=== PATIENT | female | born 1965 | race Caucasian/White ===

== ENCOUNTER 2024-11-19 07:51 | Day surgery (SDC) | payer OTHER, SELFPAY ==
--- OUTSIDE RECORDS SUMMARY | 2024-10-13 23:59 | XMS_ITS | Continuity of Care Document ---
Author Organization [facility] Address [address] [place] [address]- Care Team Providers Care Program Technician Name Role Phone Eric Moncada MD Primary Care Physician [id number] Date(s): 09/13/24 - 10/13/[address] [address]- Encounter Type: Triage Allergies, Adverse Reactions, Alerts Substance Criticality Severity Reaction Reaction Severity Status amoxicillin Active Prozac Active Effexor Active Bactrim Rash Active Geodon Active OLANZapine Active Immunizations Given and Recorded Vaccine Date Status Refusal Reason tetanus-diphtheria toxoids (Td) 1 01/30/22 Given 1Result Comment: [facility]: [id number] Medications clonazePAM 2 mg oral tablet 1 tablet = 2 mg, By Mouth, Daily at bedtime, # 90 tablet, 0 Refills, Soft Stop, 09/09/24 4:16:00 PM EDT, [id number], 148, cm, 09/09/24 14:04:00 EDT, Height Start Date: 09/09/24 Stop Date: 12/08/24 Status: Ordered Quantity: 90.0 Unit: tablet Repeat number: 1 Iron-150 1 tablet, By Mouth, Daily, 0 Refills, Maintenance, 02/03/16 8:52:29 AM EST Start Date: 02/03/16 Status: Ordered Repeat number: 1 Probiotic Formula oral capsule 1 capsule, By Mouth, Daily, 0 Refills, Maintenance, 02/03/16 8:53:03 AM EST Start Date: 02/03/16 Status: Ordered Repeat number: 1 Problem List Condition Confirmation Course Effective Dates Status Health St atus Informant Anxiety Confirmed Active Hx of traumatic brain injury Confirmed Active Hyperlipidemia, unspecified Confirmed Active 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 Osteoporosis Confirmed Active PTSD (post-traumatic stress disorder) Confirmed Active Social History Social History Type Response Smoking Status Never (less than 100 in lifetime) entered on: 06/03/24 Sex Sex Representation Female (finding) Patient Care team information Care Team Personnel Name: Eric Moncada MD Position: [facility] Physician - Primary Care Member Role: PCP Address: [address] [place] [address] Telecom: Care Team Related Persons Name: YOUNG URBINA Name: PT STATES, NONE Insurance Providers Guarantor name: BENJA MANUEL Health Plan Information #: 1 Payer: [facility] Payer Identifier: NA Member Number: [id number] Group Number: [id number] Subscriber Identifier: [id number] Relationship to Subscriber: self Coverage Type: Medicare Managed Care (Includes Medicare Advantage Plans) Coverage Verification Date: NA Telecom: NA Address:
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
--- OUTSIDE RECORDS SUMMARY | 2024-10-18 17:37 | XMS_ITS | Clinical Summary ---
Author Organization [facility] Address [address] [address] Phone Care Team Providers Care Toll Collector Supervisor Name Role Phone Unavailable Primary Care Provider Unavailabl e Social History Tobacco Use Types Packs/Day Years Used Date Smoking Tobacco: Never Assessed Education Answer Date Recorded Are you interested in more education? Not on garrett e 06/21/2022 Are you concerned about learning? Not on file 06/21/2022 No 06/21/2022 No 06/21/2022 Digital Access Answer Date Recorded No 07/20/2022 No 07/20/2022 No 07/20/2022 Reliable internet access at home? Not on file 07/20/2022 Device with a working camera? Not on file Comments Unknown Sex and Gender Information Value Date Recorded Sex Assigned at Not on file Legal Sex Female 3:51 PM EST Gender Identity Not on file Sexual Orientation Not on file Plan of Treatment Health Maintenance Due Date Last Done Comments LIPID PANEL 1963 DEPRESSION SCREENING 1975 SMOKING Hx and SMOKELESS TOB ACCO SCREENING 09/20/1976 HEPATITIS C SCREENING 09/20/1981 HIV ONE-TIME SCREENING (18-6 5 YEARS) 09/20/1981 PAP SMEAR 09/20/1984 MAMMOGRAM 2003 COLOGUARD 09/20/2008 COLONOSCOPY 09/20/2008 COLORECTAL CANCER SCREENING 09/20/2008 FIT TEST 09/20/2008 FOBT 09/20/2008 SIGMOIDOSCOPY 09/20/2008 VIRTUAL COLONOSCOPY 09/20/2008 PNEUMOCOCCAL VACCINES (50+ y ears) (1 of 1 - PCV) 09/20/2013 ZOSTER VACCINES (1 of 2) 09/20/2013 COVID-19 VACCINE (2023-2 5 season) 2023 Adult Td,Tdap Booster 01/31/2032 01/30/2022 RSV VACCINE (1 - 1-dose 75+ series) 09/20/2038 HEPATITIS A VACCINES Aged Out No long er eligible based on patient's age to complete this topic HIB VACCINES Aged Out No longer eligi ble based on patient's age to complete this topic MENINGOCOCCAL VACCINES (ACWY) Aged Out No longer eligible based on patient's age to complete this topic MENINGOCOCCAL VACCINES (B) Aged Out N o longer eligible based on patient's age to complete this topic Medical Devices Not on file Insurance [facility] MEDICARE REPLACEMENT GERARD CRAIG [id number] [facility] MEDICARE REPLACEMENT GERARD CRAIG [id number] [facility] CARE MEDICARE REPLACEMENT [facility] CARE MEDICARE REPLACEMENT [facility] CARE MEDICARE REPLACEMENT [facility] CARE MEDICARE REPLAC[place] [address] [address] [place] [address] CARE MEDICARE REPLACEMENT [facility] MEDICARE REPLACEMENT [facility] CARE MEDICARE REPLACEMENT GERARD CRAIG [id number] Additional Source Comments The information contained in this document represents components of the legal health record. It is not the complete legal health record.[facility]
--- OUTSIDE RECORDS SUMMARY | 2024-10-18 17:37 | XMS_ITS | Continuity of Care Document ---
Author Organization [facility] [address] [place] [address] Phone [phone] Care Team Providers Care Director Of People Name Role Phone Paul Vega M.D. Care Team Informat ion Occupational Therapist Per Diem [phone] Social History Type Date Description Comments Sex Female Sex Unknown Medical Devices Description No Information Available Encounters Description No Information Available Assessments Description No Information Available Plan of Treatment Future Appointment(s):* 11/04/2024 9:15 am - Valerie Banuelos NP at Main Office Functional Status Description No Information Available Mental Status Description No Information Available Referrals Description No Information Available
--- OUTSIDE RECORDS SUMMARY | 2024-10-18 17:38 | XMS_ITS | Patient Health Record ---
Author Organization [facility] Address [address] [place] [address] Care Team Providers Care Filing Or Registry Clerk Name Role Phone Angelina TINOCO, Bernice Primary Care Provider Cristina Rizzo Unavailable [phone] Allergies Allergen (clinical drug ingredient) Drug/Non Drug Allergy documented on EMR Reaction Allergy Type Onset Date Status Medicinal quinolone and acting as antibacterial agent (FN) Fluoroquinolones (uncoded) Unknown Allergy Active amoxicillin Amoxicillin Unknown Drug Allergy Act sendy sulfamethoxazole / trimethoprim Bactrim hives Drug Allergy Active Effexor Unknown Drug Allergy Active ziprasidone Geodon Unknown Drug Allergy Activ e fluoxetine Prozac headache Drug Allergy Active Reason For Referral No Information Medications Medication SIG (Take, Route, Fr equency, Duration) Notes Start Date End Date Status Estradiol 10 Active Yuvafem 10 MCG 1 tablet Vaginal Two times a Week; Duration: 90 days 05/04/2019 Active clonazePAM 2.08 Acti ve Social History Tobacco Use: Social History Observation Description Date Details (start date - stop date) Never Smoker NA - NA Tobacco Use/Smoking Question Answer Notes Are you a nonsmoker Alcohol Screen (Audit-C) Question Answer Notes Did you have a drink containing alcohol in the p ast year? No Points 0 Interpretation Negative Tobacco use other than smoking: Question Answer Notes Are you an other tobacco user? 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 Problem Hyperlipidemia (24286119) Hyperlipidemia, unspecified (E78.5) Active confirmed Problem Anxiety disorder (975182165) Anxiety disorder, unspecified (F41.9) Active confirmed Problem Posttraumatic stress disorder (60935061) Post-traumatic stress disorder, chronic (F43.12) Active confirmed Problem Irritable bowel syndrome (86823904) Irritable bowel syndrome without diarrhea (K58.9) Active confirmed Problem Scoliosis (214650952) Scoliosis, unspecified (M41.9) Active confirmed Problem History of urinary stone (206739933) Personal history of urinary calculi (Z87.442) Active confirmed Plan Of Treatment Pending Test Test Name Order Date THIN PREP,HPV,SHON IF HPV+ (>29YR)(SCRN) 07/10/2016 THIN PREP,HPV,SHON IF HPV+ (>29YR)(SCRN) 10/09/2016 MM Digital Mammo Screening 07/10/2016 Next Appt Details Provider Name:Claudia uriostegui, 06/23/2025 01:20:00 PM, [address] [place] [address], [facility] [address], [place], [address], Insurance Providers Payer Name Payer Address Payer Phone Subscriber Number Group Number Insured Name Patient Relationship to Insured Coverage Start Date Coverage End Date [facility] [address] [address] [place] [address] [id number] BENJA JACKSON Self - patient is the insured Medical (General) History Medical History History ICD Code Anxiety disorder, unspecified Irritable bowel syndrome without diarrhe a K58.9 Personal history of urinary calculi Z87. 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
[2024-11-17 10:37] VITALS: BMI 21.7
[2024-11-19 08:07] VITALS: BP 105/69; PULSE 99; RESP 18; TEMP 36.1; O2SAT 99; BMI 20.4
[2024-11-19] MEDS: Lactated Ringers 1,000 ML 100 ML IVCONT (08:24)
--- NOTE | 2024-11-19 09:25 | HO.ANESPROP2 ---
Documented by User: Estrellita Hutton NP 11/17/24 10:50 HPI - Anesthesia Eval Consult details Narrative: 59yo F for Upper Endoscopy and Colonoscopy [facility] Past Medical History Medical History (Updated 11/17/24 @ 10:35 by Delmis Kim RN) Anxiety Depression Scoliosis Nephrolithiasis IBS (irritable bowel syndrome) Hiatal hernia GERD (gastroesophageal reflux disease) Surgical History Surgical History (Updated 11/17/24 @ 10:35 by Delmis Kim RN) History of esophagogastroduodenoscopy (EGD) H/O colonoscopy Social History Social History Patient Tobacco Use Status: Never used Tobacco Have you been hit, kicked, punched, or otherwise hurt by someone within the past year? If so, by whom?: No Are you DNR?: No Advance Directives: No Advance Directives Information Provided: Yes Meds Allergies Allergy/AdvReac Type Severity Reaction Status Date / Time amoxicillin (From Amoxil) Allergy Unknown Unknown Verified 11/17/24 10:36 buspirone (From BuSpar) Allergy Unknown Unknown Verified 11/17/24 10:36 fluoxetine (From Prozac) Allergy Unknown Unknown Verified 11/17/24 10:36 Home Medications ?Medication ?Instructions ?Recorded ?Confirmed ?Last Taken ?Type clonazepam 2 mg tablet 2 mg PO BEDTIME 11/17/24 11/17/24 Unknown History Exam Height,Weight and Vital Signs: Height 5 ft 0.25 in Weight 50.802 kg Assessment and Plan Assessment Anesthesia Assessment: Chart Reviewed Documented by User: Kathy Bustamante DO 11/19/24 09:59 [facility] Past Medical History Medical History (Updated 11/17/24 @ 10:35 by Delmis Kim RN) Anxiety Depression Scoliosis Nephrolithiasis IBS (irritable bowel syndrome) Hiatal hernia GERD (gastroesophageal reflux disease) Family History Family history of problems with anesthesia: No Surgical History Surgical History (Updated 11/17/24 @ 10:35 by Delmis Urgo, RN) History of esophagogastroduodenoscopy (EGD) H/O colonoscopy History of Problems with Anesthesia: No Social History Social History Patient Tobacco Use Status: Never used Tobacco Have you been hit, kicked, punched, or otherwise hurt by someone within the past year? If so, by whom?: No Are you DNR?: No Advance Directives: No Advance Directives Information Provided: Yes Meds Allergies Allergy/AdvReac Type Severity Reaction Status Date / Time amoxicillin (From Amoxil) Allergy Unknown Unknown Verified 11/17/24 10:36 buspirone (From BuSpar) Allergy Unknown Unknown Verified 11/17/24 10:36 fluoxetine (From Prozac) Allergy Unknown Unknown Verified 11/17/24 10:36 Home Medications ?Medication ?Instructions ?Recorded ?Confirmed ?Last Taken ?Type clonazepam 2 mg tablet 2 mg PO BEDTIME 11/17/24 11/17/24 Unknown History Exam Exam Date and Time: 11/19/24 0930 Height,Weight and Vital Signs: Height 5 ft 0.25 in Weight 50.802 kg Vital Signs Temperature 97 F 11/19/24 08:07 Pulse Rate 99 11/19/24 08:07 Respiratory Rate 18 11/19/24 08:07 Blood Pressure 105/69 11/19/24 08:07 Pulse Oximetry 99 11/19/24 08:07 Oxygen Delivery Method Room Air 11/19/24 08:07 Temperature 97 F 11/19/24 08:07 Pulse Rate 99 11/19/24 08:07 Respiratory Rate 18 11/19/24 08:07 Blood Pressure 105/69 11/19/24 08:07 Pulse Oximetry 99 11/19/24 08:07 Oxygen Delivery Method Room Air 11/19/24 08:07 Airway Mallampati Class: II TM Dist: >3cm Neck ROM: Full Loose/Missing/Broken Teeth: Yes (chipped teeth x 2) Heart: S1S2 Lungs: CTAB Assessment and Plan Assessment Anesthesia Assessment: Anesthesia Plan Discussed and Chart Reviewed Final Anesthetic Review Family History of Problems with Anesthesia: No History of Problems with Anesthesia: No NPO: Yes ASA Class: II Final Preanesthetic Review: No Changes in Pt Med Stat, Meds/Allgs Chart Reviewed, Consent Obtained/Reviewed and Anes Risks/Benef Reviewed Patient Risk: Low Procedure Risk: Low Anesthetic Plan Anesthetic Plan: MAC: and Agree w/ Assess. and Plan Disposition: Standard PACU
--- NOTE | 2024-11-19 09:28 | P.HPSUR_ITS ---
Pre-Procedural Eval Section A - 24 Hr Update-Section A only Date of Service: 11/19/24 Section B - Complete if H&P > 30 days Chief Complaint: screening,epigastric pain Details of Present Illness: see H&P no changes Relevant Family History (Specify if Yes): No Relevant Social History: None Present Medications: see Short Stay Collaborative assessment Medical History: No relevant PMH Allergies: Allergies Allergy/AdvReac Type Severity Reaction Status Date / Time amoxicillin (From Amoxil) Allergy Unknown Unknown Verified 11/17/24 10:36 buspirone (From BuSpar) Allergy Unknown Unknown Verified 11/17/24 10:36 fluoxetine (From Prozac) Allergy Unknown Unknown Verified 11/17/24 10:36 Review of Systems Sugical H&P ROS: Negative: Constitution, Cardiovascular, Respiratory, Neurological, Psychiatric, Hem-Onc, Allergic/Immunologic, Gastrointestinal, Genitourinary, Musculoskeletal, Integumentary, Endocrine and Eyes/Ears/Nose/Throat Exam Surgical H&P Exam: Normal: HEENT, Normal: Heart, Normal: Lungs, Normal: Ext remities, Normal: Abdomen, Normal: Skin and Normal: Neurological Plan Diagnosis/Plan: Unchanged I have reviewed the history and physical and performed a pertinent physical examination on my patient. No changes have occurred unless specified. Time Spent With Patient Time: Total time managing care of this patient today ____ minutes.
[2024-11-19 10:22] VITALS: BP 92/42; PULSE 93; RESP 18; TEMP 36.5; O2SAT 92
[2024-11-19 10:30] VITALS: BP 95/43; PULSE 100; RESP 18; O2SAT 92
[2024-11-19 10:45] VITALS: BP 121/66; PULSE 95; RESP 18; TEMP 36.6; O2SAT 97
[2024-11-19 11:00] VITALS: BP 127/61; PULSE 104; RESP 18; TEMP 36.6; O2SAT 97
--- NOTE | 2024-11-19 11:17 | OP_ITS ---
DATE OF SERVICE: 11/19/2024 SURGEON: Ajit Keane MD INDICATIONS: 1. Epigastric pain. 2. Colon cancer screening. PREOPERATIVE DIAGNOSIS: POSTOPERATIVE DIAGNOSIS: PROCEDURE PERFORMED: Upper endoscopy with biopsy, colonoscopy to the terminal ileum. ESTIMATED BLOOD LOSS: COMPLICATIONS: ANESTHESIA: Monitored anesthesia care. ASSISTANTS: SPECIMENS: DESCRIPTION OF PROCEDURE: A history and physical was performed. The risks and benefits of the procedure were explained to the patient. Informed consent was obtained. The patient was placed in the left lateral decubitus position. The Olympus video gastroscope was introduced into the esophagus, stomach, and duodenum. Examination was performed. The scope was removed. She was repositioned for colonoscopy. A digital rectal exam was performed and was found to be normal. The Olympus pediatric video colonoscope was introduced into the rectum and advanced to the cecum. The cecum was identified by transillumination, palpation, and identification of ileocecal valve. Examination was performed. The scope was removed. She tolerated both procedures well, and returned to the recovery area in stable condition. FINDINGS: Upper endoscopy: 1. Esophagus: There was erosive esophagitis involving the distal 1 to 2 cm of the esophagus. No raised lesions or ulcerated areas were identified. Biopsies were obtained. 2. Stomach: Stomach was normal. There were linear streaks of erythema. Biopsies were obtained from the antrum to evaluate for H pylori. 3. Duodenum: The bulb and 2nd portion were normal. Biopsies were obtained from the 2nd portion. Colonoscopy: The terminal ileum was examined and appeared normal. The visualized colonic mucosa was normal. The quality of the prep was good. No polyps were identified. Retroflexed examination showed small internal hemorrhoids. There was mild sigmoid diverticulosis. IMPRESSION: 1. Erosive esophagitis. 2. Normal colonoscopy. RECOMMENDATION: Follow up the biopsy results. Screening colonoscopy in 10 years. MD EUSEBIO Watts/REE / [id number]
== END 2024-11-19 12:44 | disposition home or self-care (01) ==
PROVIDERS: PCP Internal Medicine; Visit Provider Internal Medicine Gastroenterology
PROC: (CPT 43239; principal; 2024-11-19 09:00)
DX: Z12.11 Encounter for screening for malignant neoplasm of colon (principal); K57.30 Diverticulosis of large intestine without perforation or abscess without bleeding; K64.8 Other hemorrhoids; R10.13 Epigastric pain; K21.00 Gastro-esophageal reflux disease with esophagitis, without bleeding; K44.9 Diaphragmatic hernia without obstruction or gangrene; K58.9 Irritable bowel syndrome, unspecified; N20.0 Calculus of kidney; R87.610 Atypical squamous cells of undetermined significance on cytologic smear of cervix (ASC-US); F32.A Depression, unspecified; F41.9 Anxiety disorder, unspecified; M41.9 Scoliosis, unspecified; Z79.899 Other long term (current) drug therapy; Z88.1 Allergy status to other antibiotic agents; Z88.8 Allergy status to other drugs, medicaments and biological substances
CPT/HCPCS: 43239; G0121; 88305; 88313; 88342; J2003; J2704